=== PATIENT | male | born 1960 | race American Indian/Alaskan Native ===

== ENCOUNTER 2016-06-04 08:01 | Day surgery (SDC) | payer BC, OTHER ==
[2016-06-04] MEDS ORDERED: Sodium Chloride 0.9% 1,000 ML IV SCH (08:30)
[2016-06-04] MEDS ORDERED: Propofol 200 MG/20 ML SDV ONE ×2 (08:48→09:43)
[2016-06-04] MEDS ORDERED: fentaNYL 100 MCG/2 ML SDV ONE (08:48)
[2016-06-04] MEDS ORDERED: Midazolam 1 MG/ML 2 ML SDV ONE (08:48)
[2016-06-04 10:47] VITALS: BP 134/107
--- NOTE | 2016-06-04 12:22 | OR ---
DATE OF PROCEDURE: 06/04/2016 PROCEDURE: Colonoscopy. FINDINGS: 1. Descending colon polyp #1, 5 mm, completely removed using cold biopsy forceps. 2. Descending colon polyp #2, 5 mm, completely removed using cold biopsy forceps. 3. Sigmoid colon polyp, 5 mm, completely removed using cold biopsy forceps. 4. Rectal polyp, 5 mm, completely removed using cold biopsy forceps. 5. No old or new blood. 6. Diverticulosis, mild (potential etiology of GI bleeding). COMPLICATIONS: None. 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 ANESTHESIA: MAC. PREOPERATIVE DIAGNOSIS: Rectal bleeding. POSTOPERATIVE DIAGNOSIS: Rectal bleeding. RISKS: Risks, benefits, alternatives, and limitations, including, but not limited to infection, bleeding, and perforation were explained to the patient and he wished to proceed. PROCEDURE IN DETAIL: The patient was placed in left lateral decubitus position. Digital rectal exam was performed without abnormality. The scope was introduced and advanced atraumatically to the ileocecal valve. The scope was brought back to the ascending, transverse, descending colon, and retroflexed. The aforementioned polyps were identified and completely removed. There was no evidence of old or new blood. The patient had diverticulosis, which would be described as mild to moderate, but could definitely be the etiology of GI bleeding. No abnormalities on retroflexion. The patient tolerated the procedure well. Jagdish Rueda MD /[id number]
== END 2016-06-04 10:55 | disposition home or self-care (01) ==
LOC: JP.SDS 08:01
PROVIDERS: ATTEND Surgery
DX: Z12.11 Encounter for screening for malignant neoplasm of colon (principal); D12.4 Benign neoplasm of descending colon; K63.5 Polyp of colon; K62.1 Rectal polyp; J30.81 Allergic rhinitis due to animal (cat) (dog) hair and dander; K57.30 Diverticulosis of large intestine without perforation or abscess without bleeding; Z88.8 Allergy status to other drugs, medicaments and biological substances
CPT/HCPCS: 45380; 88305; J2250; J2704; J3010; J7040

== ENCOUNTER 2019-02-07 21:29 | Emergency (ER) | payer MEDICAID ==
[2019-02-07] MEDS ORDERED: Metoprolol Succinate 50 MG Tab.ER PO ONE (22:01)
--- NOTE | 2019-02-07 22:07 | EDM.PDOC ---
ED HPI GENERAL MEDICAL PROBLEM - General Chief Complaint: Cardiovascular Problem Stated Complaint: HIGH BLOOD PRESSURE Time Seen by Provider: 02/07/19 21:50 Source of Information: Reports: Patient, Old Records History Limitations: Reports: No Limitations - History of Present Illness INITIAL COMMENTS - FREE TEXT/NARRATIVE: 58 yo male with a pHx of both HTN and anxiety presents with elevated BP tonight that caused his anxiety to spike. Has not taken his BP for quite some time. Was on a few different meds for BP in the past, but is off all of them due to not having a doctor currently. Has been on lisinopril, metoprolol and most recently clonidine. 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 Cardiovascular History: Reports: High Cholesterol, Hypertension, [place] Other Cardiovascular History: ischemic stroke Respiratory History: Reports: COPD Other Respiratory History: snores- ? sleep apnea Gastrointestinal History: Reports: GERD, PUD Other Genitourinary History: FREQUENT URINATION AT NIGHT Musculoskeletal History: Reports: Arthritis, Gout, Other (See Below) Other Musculoskeletal History: chronic knee pain- difficulty to standing Neurological History: Reports: Concussion, CVA, Speech Problems Psychiatric History: Reports: Anxiety, Panic Attack Endocrine/Metabolic History: Reports: None, Obesity/BMI 30+ Hematologic History: Reports: None Immunologic History: Reports: None Oncologic (Cancer) History: Reports: None Dermatologic History: Reports: Urticaria - Infectious Disease History Infectious Disease History: Reports: None - Past Surgical History HEENT Surgical History: Reports: Other (See Below) GI Surgical History: Reports: None Male Surgical History: Reports: Circumcision Dermatological Surgical History: Reports: None Social & Family History - Family History Family Medical History: Noncontributory Cardiac: Reports: Blood Clots/VTE/DVT, CAD, Other (See Below) Other Cardiac Family History: carotid blockage Musculoskeletal: Reports: Osteoporosis Endocrine/Metabolic: Reports: Diabetes, type II - Caffeine Use Caffeine Use: Reports: Coffee ED ROS GENERAL - Review of Systems Review Of Systems: Comprehensive ROS is negative, except as noted in HPI. Constitutional: Reports: No Symptoms HEENT: Reports: No Symptoms Respiratory: Reports: No Symptoms Cardiovascular: Reports: Blood Pressure Problem Endocrine: Reports: No Symptoms GI/Abdominal: Reports: No Symptoms ED EXAM, GENERAL - Physical Exam Exam: See Below Exam Limited By: No Limitations General Appearance: Alert, WD/WN, No Apparent Distress, Anxious Eye Exam: Bilateral Eye: Normal Inspection Ears: Normal External Exam, Normal Canal, Hearing Grossly Normal, Normal TMs Ear Exam: Right Ear: TM Perforation, Bilateral Ear: Auricle Normal, Canal Normal , TM normal Nose: Normal Inspection, No Blood Throat/Mouth: Normal Inspection, Normal Lips, Normal Oropharynx, Normal Voice, No Airway Compromise Head: Atraumatic, Normocephalic Neck: Normal Inspection Respiratory/Chest: No Respiratory Distress, Lungs Clear, Normal Breath Sounds, No Accessory Muscle Use Cardiovascular: Regular Rate, Rhythm, No Edema Back Exam: Normal Inspection Extremities: Normal Inspection, Normal Range of Motion, Non-Tender, No Pedal Edema Neurological: Alert, Oriented, CN II-XII Intact, Normal Cognition, No Motor/ Sensory Deficits Psychiatric: Normal Affect, Normal Mood Skin Exam: Warm, Dry, Intact, Normal Color, No Rash Course - Vital Signs Last Recorded V/S: Last Vital Signs Temp 37.1 C 02/07/19 21:46 Pulse 107 H 02/07/19 21:46 Resp 16 02/07/19 21:46 BP 177/99 H 02/07/19 21:46 Pulse Ox 95 02/07/19 21:46 - Orders/Labs/Meds Orders: Active Orders 24 hr Category Date Time Status Metoprolol Succinate [Toprol XL] Med 02/07/19 22:01 Once 50 mg PO ONETIME ONE Departure - Departure Time of Disposition: 22:15 Disposition: Home, Self-Care 01 Condition: Fair Clinical Impression: Anxiety, Tobacco use HTN (hypertension) Qualifiers: Hypertension type: essential hypertension Qualified Code(s): I10 - Essential ( primary) hypertension Instructions: Managing Your Hypertension Referrals: PCP,Ben [Primary Care Provider] - Additional Instructions: Take metoprolol succinate 50 mg every evening until you can get into the clinic to be seen. Avoid salt, or nicotine. - My Orders Last 24 Hours: My Active Orders 02/07/19 22:01 Metoprolol Succinate [Toprol XL] 50 mg PO ONETIME ONE - Assessment/Plan Last 24 Hours: My Active Orders 02/07/19 22:01 Metoprolol Succinate [Toprol XL] 50 mg PO ONETIME ONE
[2019-02-07 22:28] VITALS: BP 143/88; PULSE 97
== END 2019-02-07 22:35 | disposition home or self-care (01) ==
LOC: JP.ED 21:29
DX: F41.9 Anxiety disorder, unspecified (principal); I10 Essential (primary) hypertension; Z91.09 Other allergy status, other than to drugs and biological substances; I25.2 Old myocardial infarction; E78.00 Pure hypercholesterolemia, unspecified; J44.9 Chronic obstructive pulmonary disease, unspecified; Z86.73 Personal history of transient ischemic attack (TIA), and cerebral infarction without residual deficits; E66.9 Obesity, unspecified; Z68.35 Body mass index [BMI] 35.0-35.9, adult; F17.200 Nicotine dependence, unspecified, uncomplicated; Z88.5 Allergy status to narcotic agent; Z79.82 Long term (current) use of aspirin; Z79.899 Other long term (current) drug therapy
CPT/HCPCS: 99283; A9270

== ENCOUNTER 2019-02-24 16:23 | Emergency (ER) | payer MEDICAID ==
[2019-02-24] MEDS ORDERED: LORazepam 2 MG/ML SDV IM ONE (16:58)
--- NOTE | 2019-02-24 17:05 | EDM.PDOC ---
ED HPI GENERAL MEDICAL PROBLEM - General Chief Complaint: General Stated Complaint: RICKEY WEAK SOB Time Seen by Provider: 02/24/19 16:45 Source of Information: Reports: Patient History Limitations: Reports: No Limitations - History of Present Illness INITIAL COMMENTS - FREE TEXT/NARRATIVE: 58-year-old male with a long history of hypertension, anxiety, has had 3 emergency room visits in the last month for anxiety exacerbations and hypertension. He did see Francisco Bridget and started primary care just over a week ago, started 12.5 mg of metoprolol XL and 50 mg of sertraline. Today he was reading a book and then started feeling his heart race, felt some pressure and shortness of breath and became shaky. He became worried he was "reacting to his medication" so came in. He arrived moderately hyperventilating and anxious , he said his hands were numb. This is a very similar presentation to when I saw him a month ago. Onset: Sudden Duration: Hour(s): (Within the last 1 to 2 hours) Associated Symptoms: Reports: Malaise, Shortness of Breath, Other (Paresthesias of the hands, tremor) Generalized Pain Score (Numeric/FACES): 2 - Related Data Allergies Allergy/AdvReac Type Severity Reaction Status Date / Time cat dander Allergy Hives Verified 02/07/19 22:19 epinephrine Allergy Cannot Verified 02/07/19 22:19 Remember unknow environmental Allergy Hives Uncoded 02/07/19 22:19 Home Meds: Home Meds Aspirin [Ecotrin EC] 325 mg PO DAILY 01/27/16 [History] atorvaSTATin [Lipitor] 20 mg PO BEDTIME 06/02/16 [History] Albuterol Sulfate [Albuterol Sulfate Hfa] 1 - 2 puff IH ASDIRECTED PRN 02/24/19 [History] Budesonide/Formoterol [Symbicort 80-4.5 MCG] 2 puff INH BID 02/24/19 [History] Lisinopril [Zestril] 20 mg PO DAILY 02/24/19 [History] Metoprolol Succinate 12.5 mg PO DAILY 02/24/19 [History] Sertraline [Zoloft] 50 mg PO DAILY 02/24/19 [History] hydrOXYzine HCL [Atarax] 25 - 50 mg PO ASDIRECTED PRN 02/24/19 [History] Past Medical History HEENT History: Reports: Impaired Vision, Other (See Below) Other HEENT History: Seasonal allergies. Cardiovascular History: Reports: High Cholesterol, Hypertension, [place] Other Cardiovascular History: ischemic stroke Respiratory History: Reports: COPD Other Respiratory History: snores- ? sleep apnea Gastrointestinal History: Reports: GERD, PUD Genitourinary History: Reports: Other (See Below) Other Genitourinary History: FREQUENT URINATION AT NIGHT Musculoskeletal History: Reports: Arthritis, Gout, Other (See Below) Other Musculoskeletal History: chronic knee pain- difficulty to standing Neurological History: Reports: Concussion, CVA, Speech Problems Psychiatric History: Reports: Anxiety, Panic Attack Endocrine/Metabolic History: Reports: Obesity/BMI 30+ Hematologic History: Reports: None Immunologic History: Reports: None Oncologic (Cancer) History: Reports: None Dermatologic History: Reports: Urticaria - Infectious Disease History Infectious Disease History: Reports: C-Difficile - Past Surgical History HEENT Surgical History: Reports: Other (See Below) GI Surgical History: Reports: None Male Surgical History: Reports: Circumcision Dermatological Surgical History: Reports: None Social & Family History - Family History Family Medical History: Noncontributory Cardiac: Reports: Blood Clots/VTE/DVT, CAD, Other (See Below) Other Cardiac Family History: carotid blockage Musculoskeletal: Reports: Osteoporosis Endocrine/Metabolic: Reports: Diabetes, type II - Tobacco Use Smoking Status *Q: Current Every Day Smoker Years of Tobacco use: 40 Packs/Tins Daily: 1.5 - Caffeine Use Caffeine Use: Reports: Coffee - Recreational Drug Use Recreational Drug Use: No ED ROS GENERAL - Review of Systems Review Of Systems: See Below Constitutional: Reports: Malaise HEENT: Reports: No Symptoms Respiratory: Reports: Shortness of Breath Cardiovascular: Reports: Chest Pain (Slight pressure in his chest, denies pain) , Palpitations GI/Abdominal: Denies: Abdominal Pain : Reports: No Symptoms Skin: Denies: Pallor, Diaphoresis Psychiatric: Reports: Anxiety ED EXAM, GENERAL - Physical Exam Exam: See Below Exam Limited By: No Limitations General Appearance: Alert, Anxious Eye Exam: Bilateral Eye: Normal Inspection Head: Atraumatic Respiratory/Chest: No Respiratory Distress, Lungs Clear Cardiovascular: Regular Rate, Rhythm, Tachycardia (Mild tachycardia, occasional PVCs or extra beats), Systolic Murmur (Very faint systolic murmur is present) GI/Abdominal: Soft, Non-Tender Extremities: Normal Inspection. No: Pedal Edema Neurological: Alert, Oriented Psychiatric: Anxious (Patient is extremely anxious) Skin Exam: Warm, Dry Course - Vital Signs Last Recorded V/S: Last Vital Signs Temp 97.2 F 02/24/19 16:40 Pulse 86 02/24/19 17:30 Resp 10 L 02/24/19 17:30 BP 145/90 H 02/24/19 17:30 Pulse Ox 95 02/24/19 17:30 - Orders/Labs/Meds Labs: Laboratory Tests 02/24/19 02/24/19 Range/Units 17:15 17:15 WBC 10.6 (4.5-11.0) K/uL RBC 5.50 (4.30-5.90) M/uL Hgb 16.5 H (12.0-15.0) g/dL Hct 49.8 (40.0-54.0) % MCV 91 (80-98) fL MCH 30 (27-31) pg MCHC 33 (32-36) % Plt Count 333 (150-400) K/uL Neut % (Auto) 64 (36-66) % Lymph % (Auto) 27 (24-44) % Wake % (Auto) 9 H (2-6) % Eos % (Auto) 1 L (2-4) % Baso % (Auto) 0 (0-1) % Sodium 139 L (140-148) mmol/L Potassium 3.6 (3.6-5.2) mmol/L Chloride 104 (100-108) mmol/L Carbon Dioxide 21 (21-32) mmol/L Anion Gap 17.6 H (5.0-14.0) mmol/L BUN 8 (7-18) mg/dL Creatinine 0.9 (0.8-1.3) mg/dL Est Cr Clr Drug Dosing 90.91 mL/min Estimated GFR (MDRD) > 60 (>60) Glucose 129 H (74-106) mg/dL Calcium 8.8 (8.5-10.1) mg/dL Troponin I < 0.017 (0.000-0.056) ng/mL Meds: Medications Discontinued Medications Generic Name Dose Route Start Last Admin Trade Name Freq PRN Reason Stop Dose Admin Lorazepam 2 mg 02/24/19 16:58 12/20/19 17:02 Ativan IM 02/24/19 16:59 2 mg ONETIME ONE Administration - Re-Assessments/Exams Free Text/Narrative Re-Assessment/Exam: 02/24/19 17:05 CBC BMP and troponin were obtained and he was given 2 mg of IM Ativan. 02/24/19 17:49 30 minutes after the Ativan the patient was resting quietly and vitals were normal. Labs returned reassuring, troponin was 0, electrolytes are normal. I asked the patient to increase his metoprolol to 25 mg daily, and try to continue the sertraline as prescribed. Departure - Departure Time of Disposition: 17:58 Disposition: Home, Self-Care 01 Clinical Impression: Palpitations, Anxiety - Discharge Information Instructions: Living With Anxiety Referrals: Francisco Gill NP [Primary Care Provider] - Forms: ED Department Discharge Care Plan Goals: Increase metoprolol to 25 mg daily, he will continue with your other medications. Recheck if not improving satisfactorily next week. Sepsis Event Note - Evaluation Sepsis Screening Result: No Definite Risk - Focused Exam Date Exam was Performed: 02/27/19 Time Exam was Performed: 10:45
[2019-02-24 17:47] VITALS: BP 145/90; PULSE 86
== END 2019-02-24 17:59 | disposition home or self-care (01) ==
LOC: JP.ED 16:23
DX: F41.9 Anxiety disorder, unspecified (principal); I10 Essential (primary) hypertension; E78.00 Pure hypercholesterolemia, unspecified; I25.2 Old myocardial infarction; J44.9 Chronic obstructive pulmonary disease, unspecified; M10.9 Gout, unspecified; Z86.73 Personal history of transient ischemic attack (TIA), and cerebral infarction without residual deficits; F41.0 Panic disorder [episodic paroxysmal anxiety]; E66.9 Obesity, unspecified; Z68.34 Body mass index [BMI] 34.0-34.9, adult; F17.210 Nicotine dependence, cigarettes, uncomplicated; Z88.8 Allergy status to other drugs, medicaments and biological substances; Z91.048 Other nonmedicinal substance allergy status; Z79.82 Long term (current) use of aspirin; Z79.899 Other long term (current) drug therapy
CPT/HCPCS: 36415; 80048; 84484; 85025; 96372; 99285-25; J2060

== ENCOUNTER 2019-05-15 07:43 | Day surgery (SDC) | payer MEDICAID ==
--- OUTSIDE RECORDS SUMMARY | 2019-04-27 08:31 | XMSREPORT | Referral Summary ---
:1960 Author Organization [facility] Address [address] [address] Care Team Providers Name Role Phone Francisco Gill APRN, CNP Primary Care Provider Reason for Referral Office Visit (Routine) Status Reason Specialty Diagnoses / Referred By Referred To Procedures Contact Contact Authorized Diagnoses Colon cancer screening Francisco Gill, [facility] [address] [phone] Phone: Reason for Visit Reason Comments Recheck Mood/ Medication questions. Encounter Details Date Type Department Care Team Description 04/25/2019 Office Visit [facility] Francisco Gill, Anxiety ( Primary Dx); [facility] SANTO Insomnia, unspecified type; [facility] [address] [facility] Colon cancer screening; [address] [place], [place] [id number] Allergies Active Allergy Reactions Severity Noted Date Comments Epinephrine Triggered a heart attack when given through an IV. documented as of this encounter (statuses as of 04/25/2019) Medications Medication Sig Dispensed Refills Start Date End Date Status aspirin EC 325 MG Take 1 Tab by 31 Tab 3 08/17/2012 Active tablet mouth one time a day. Do not split or crush. Blood Pressure 1 Dose by Does 1 Kit 0 07/08/2016 Active Monitoring (BLOOD not apply PRESSURE KIT) Kit route as needed (as needed). atorvaSTATin Take 1 Tab by 90 Tab 3 02/14/2019 Active (LIPITOR) 20 MG mouth at tablet bedtime. metoprolol Take 1 Tab by 90 Tab 1 03/20/2019 Active succinate mouth one time (Toprol-XL) 50 MG a day. Do not 24 hour crush or chew. extended-release tablet hydrOXYzine Take 1-2 Caps 40 Cap 1 03/20/2019 Active pamoate by mouth three (Vistaril) 25 MG times a day as capsule needed for Anxiety. sertraline Take 1 Tab by 90 Tab 1 03/20/2019 Active (Zoloft) 100 MG mouth one time tablet a day. albuterol HFA Inhale 1-2 3 Inhaler 6 04/25/2019 Active (Proair HFA, Puffs into the Ventolin HFA) 108 lungs every (90 Base) MCG/ACT four hours as inhalation needed for aerosol Shortness of Breath. Shake before using. budesonide-formot Inhale 2 Puffs 3 Inhaler 6 04/25/2019 Active iron (Symbicort) into the lungs 80-4.5 MCG/ACT two times a aerosol inhaler day. albuterol HFA Inhale 1-2 3 Inhaler 1 02/14/2019 Discontinued (PROAIR HFA, Puffs into the 0 (Reorder) VENTOLIN HFA) 108 lungs every (90 Base) MCG/ACT four hours as inhalation needed for aerosol Shortness of Breath. Shake before using. budesonide-formot Inhale 2 Puffs 3 Inhaler 1 02/14/2019 Discontinued iron (SYMBICORT) into the lungs 0 (Reorder) 80-4.5 MCG/ACT two times a aerosol inhaler day. traZODone Take 1-2 Tabs 60 Tab 3 03/20/2019 Discontinued (Desyrel) 50 MG by mouth at 0 (Side effects) tablet bedtime. documented as of this encounter (statuses as of 04/25/2019) Active Problems Problem Noted Date Chronic obstructive pulmonary disease, unspecified COPD type 03/20/2019 Prediabetes 10/13/2012 Dysarthria 08/24/2012 CAD (coronary artery disease) 08/24/2012 MO, old 08/24/2012 ED (erectile dysfunction) 08/24/2012 HTN (hypertension) 08/24/2012 Hypercholesterolemia 08/24/2012 Acute ischemic stroke, left cerebral 08/15/2012 documented as of this encounter (statuses as of 04/25/2019) Resolved Problems Problem Noted Date Resolved Date Left hemiparesis 08/24/2012 02/14/2019 Smoking 08/15/2012 08/24/2012 documented as of this encounter (statuses as of 04/25/2019) Immunizations Name Administration Dates Next Due Influenza Quad Preservative Free 04/15/2015 Influenza Unspecified Formulation 03/20/2013 Pneumovax 23 04/15/2015, 03/20/2013, 03/04/2010 TD >7yrs With Preservative 07/19/2002 Tdap >7 years 06/15/2017 documented as of this encounter Social History Tobacco Use Types Packs/Day Years Used Date Current Every Day Smoker Cigarettes 0.5 30 Smokeless Tobacco: Never Used Tobacco Cessation: Ready to Quit: No; Counseling Given: Yes Comments: 15 cigs a day/ E-cigarettes, uses patch on and off Alcohol Use Drinks/Week oz/Week Comments Yes 12 Cans of beer 10.0 12/week Sex Assigned at Date Recorded Not on file Job Start Date Occupation Industry Not on file Not on file Not on file Travel History Travel Start Travel End No recent travel history available. documented as of this encounter Last Filed Vital Signs Vital Sign Reading Time Taken Comments Blood Pressure 130/80 04/25/2019 10:30 AM BIT SHARPENER OPERATOR Pulse 84 04/25/2019 10:30 AM BIT SHARPENER OPERATOR Temperature 36.6 C (97.9 F) 04/25/2019 10:30 AM BIT SHARPENER OPERATOR Respiratory Rate 18 04/25/2019 10:30 AM BIT SHARPENER OPERATOR Oxygen Saturation 97% 04/25/2019 10:30 AM BIT SHARPENER OPERATOR Inhaled Oxygen Concentration - - Weight 107.1 kg (236 lb 1.8 oz) 04/25/2019 10:30 AM BIT SHARPENER OPERATOR Height - - Body Mass Index 35.64 02/14/2019 2:19 PM BIT SHARPENER OPERATOR documented in this encounter Progress Notes Francisco Gill, BEADER TENDER, LOTTERY MANAGER - 04/25/2019 10:20 AM CST Chief Complaint Patient presents with Recheck Mood/ Medication questions. History of Present Illness: Yobany Salvador is a 58 year old male presenting for recheck on his sleep and anxiety. The patient has a history of anxiety and difficulty with insomnia. When I initially met him I started him on sertraline 50 mg daily and continued with some hydroxyzine on an as-needed basis for management of the anxiety. Upon recheck he was still noting some anxiety symptoms and I increase the sertraline to 100 mg/day. Reports that the anxiety has been improved with that. Still has some anxiety symptoms but notnearly as severe as before. He does note he has had longstanding history of difficulty falling asleep noting racing thoughts and difficulty finding a sleep. I had him try trazodone when I saw him last month. He reports that the medication really did not help a whole lot and recently has been feeling some undue side effects. He noticed some heart palpitations and difficulty breathing after he tookthe trazodone. He stopped taking that totally on his own a few days ago and has not had any of the aforementioned symptoms. He does continue to struggle with sleep which is bothersome for him. He did have a colonoscopy about 3 years ago which did show several polyps one being a tubular adenoma. Repeat in 3 years was recommended. The patient denies any difficulties with abdominal pain, dark or bloody stool , change in the bowel habits, weight loss or night sweats. Review of Systems Constitutional: Negative for chills, fever and malaise/fatigue. Respiratory: Negative for cough, sputum production, shortness of breath and wheezing. Cardiovascular: Negative for chest pain, palpitations and claudication. Gastrointestinal: Negative for abdominal pain, blood in stool, constipation, diarrhea, melena, nausea and vomiting. Skin: Negative for itching and rash. Neurological: Negative for dizziness, tingling and headaches. Psychiatric/Behavioral: The patient has insomnia. The patient is not nervous/ anxious. Past Medical History: Diagnosis Date Carpal tunnel syndrome Chronic obstructive pulmonary disease, unspecified COPD type (HCC) 03/20/2019 Glucose intolerance (pre-diabetes) 10/13/2012 HTN (hypertension) 08/24/2012 Hyperlipemia Left hemiparesis (HCC) 08/24/2012 Unspecified cerebral artery occlusion with cerebral infarction Past Surgical History: Procedure Laterality Date COLONOSCOPY,BIOPSY 06/04/2016 next colon due in [address] Rueda LIPOMA RESECTION Current Outpatient Medications Medication Sig albuterol HFA (Proair HFA, Ventolin HFA) 108 (90 Base) MCG/ACT inhalation aerosol Inhale 1-2 Puffs into the lungs every four hours as needed for Shortness of Breath. Shake before using. budesonide-formoterol (Symbicort) 80-4.5 MCG/ACT aerosol inhaler Inhale 2 Puffs into the lungs two times a day. metoprolol succinate (Toprol-XL) 50 MG 24 hour extended-release tablet Take 1 Tab by mouth one time a day. Do not crush or chew. hydrOXYzine pamoate (Vistaril) 25 MG capsule Take 1-2 Caps by mouth three times a day as needed for Anxiety. sertraline (Zoloft) 100 MG tablet Take 1 Tab by mouth one time a day. atorvaSTATin (LIPITOR) 20 MG tablet Take 1 Tab by mouth at bedtime. Blood Pressure Monitoring (BLOOD PRESSURE KIT) Kit 1 Dose by Does not apply route as needed (as needed). aspirin EC 325 MG tablet Take 1 Tab by mouth one time a day. Do not split or crush. No current facility-administered medications for this visit. Allergies Allergen Reactions Epinephrine Triggered a heart attack when given through an IV. Social History Tobacco Use Smoking status: Current Every Day Smoker Packs/day: 0.50 Years: 30.00 Pack years: 15.00 Types: Cigarettes Smokeless tobacco: Never Used Tobacco comment: 15 cigs a day/ E-cigarettes, uses patch on and off Substance Use Topics Alcohol use: Yes Alcohol/week: 10.0 standard drinks Types: 12 Cans of beer per week Comment: 12/week Family History Problem Relation Age of Onset Cardiovascular Disease Father Hypertension Father Diabetes Father Myocardial Infarction Father Blood pressure 130/80, pulse 84, temperature 36.6 C (97.9 F), resp. rate 18 , weight 236 lb 1.8 oz (107.1 kg), SpO2 97 %. Physical Exam Constitutional: He is oriented to person, place, and time and well-developed, well-nourished, and inno distress. HENT: Head: Normocephalic and atraumatic. Cardiovascular: Normal rate, regular rhythm and normal heart sounds. Pulmonary/Chest: Effort normal and breath sounds normal. No respiratory distress. He has no wheezes.He has no rales. Musculoskeletal: Normal range of motion. General: No tenderness or edema. Neurological: He is alert and oriented to person, place, and time. Gait normal. Skin: Skin is warm and dry. No rash noted. No erythema. Psychiatric: Mood, affect and judgment normal. ASSESSMENT/PLAN: 1. Anxiety: Definitely seeing some improvement, continue with the sertraline 100 mg daily and as needed hydroxyzine. 2. Insomnia: Definitely stop the trazodone and do not take that anymore given the side effects. Wewill have him try melatonin 6 mg at bedtime. 3. Colon cancer screening: We will send orders for repeat colonoscopy. - Follow up: In about 3 months for routine physical, sooner if needed. Francisco Gill APRN, LOTTERY MANAGER [address] [phone] documented in this encounter Plan of Treatment Date Type Specialty Care Team Description 07/24/2019 Appointment Laboratory Lab, [facility], [address] [place] [id number] 07/24/2019 Appointment Internal Medicine Francisco Gill, HANSA, LOTTERY MANAGER [address] [place] [phone] Name Type Priority Associated Diagnoses Order Schedule SCHEDULE ENDOSCOPY REFERRAL Routine Colon cancer screening Ordered: 2019 [facility] documented as of this encounter Visit Diagnoses Diagnosis Anxiety Anxiety state, unspecified Insomnia, unspecified type Colon cancer screening Special screening for malignant neoplasms, colon Tobacco use disorder documented in this encounter documented as of this encounter Advance Directives For more information, please contact: [phone] Code Status Date Activated Date Inactivated Comments Full Code 08/15/2012 12:09 PM 08/17/2012 6:04 PM
[2019-05-15] MEDS ORDERED: Sodium Chloride 0.9% 1,000 ML IV SCH (08:45)
[2019-05-15] MEDS ORDERED: fentaNYL 100 MCG/2 ML SDV ONE (08:51)
[2019-05-15] MEDS ORDERED: Propofol 200 MG/20 ML SDV ONE (08:51)
[2019-05-15] MEDS ORDERED: Midazolam 1 MG/ML 2 ML SDV ONE (08:51)
[2019-05-15 10:25] VITALS: BP 121/74; PULSE 64
--- NOTE | 2019-05-16 08:45 | OR ---
DATE OF PROCEDURE: 05/15/2019 SURGEON: Jagdish Rueda MD PROCEDURE: Colonoscopy. FINDINGS: Descending colon, polyp of approximately 5 mm, completely removed using cold biopsy forceps. COMPLICATIONS: None. TECHNICAL TRAINER: None. ANESTHESIA: MAC. PREOPERATIVE DIAGNOSIS: Screening colonoscopy. POSTOPERATIVE DIAGNOSIS: Screening colonoscopy. RISKS: Risks, benefits, alternatives, and limitations including, but not limited to, infection, bleeding, and perforation were explained to the patient, who wished to proceed. PROCEDURE IN DETAIL: The patient was placed in left lateral decubitus position. Digital rectal exam was performed without abnormality. The scope was introduced and advanced atraumatically to the level of ileocecal valve. A photo was taken. The scope was brought back through the colon. In the descending colon, the aforementioned polyp was completely removed using hot snare wire device. No abnormalities on retroflexion. The patient tolerated the procedure well. Jagdish Rueda MD /[id number]
== END 2019-05-15 10:27 | disposition home or self-care (01) ==
LOC: JP.SDS 07:43
PROVIDERS: ATTEND Surgery
DX: Z12.11 Encounter for screening for malignant neoplasm of colon (principal); K63.5 Polyp of colon; I10 Essential (primary) hypertension; I25.10 Atherosclerotic heart disease of native coronary artery without angina pectoris
CPT/HCPCS: 45385; J2250; J2704; J3010; J7030

== ENCOUNTER 2019-07-28 21:11 | Emergency (ER) | payer MEDICAID ==
[2019-07-28 21:27] VITALS: BP 144/90; PULSE 99
[2019-07-28] MEDS ORDERED: Cetirizine 10 MG Tab PO ONE (22:02)
[2019-07-28] MEDS ORDERED: Famotidine 20 MG Tab PO ONE (22:02)
[2019-07-28] MEDS ORDERED: predniSONE 20 MG Tab PO ONE (22:02)
--- NOTE | 2019-07-28 22:07 | EDM.PDOC ---
ED HPI GENERAL MEDICAL PROBLEM - General Chief Complaint: Skin Complaint Stated Complaint: RASH ON FOREHEAD Time Seen by Provider: 07/28/19 21:50 Source of Information: Reports: Patient History Limitations: Reports: No Limitations - History of Present Illness INITIAL COMMENTS - FREE TEXT/NARRATIVE: Yobany reports itching rash to face and upper shoulders/back that started today. He denies insect bites, eating or drinking anything new, using any new topicals or other exposure. He does report that he has seasonal allergies. He denies fever, chills, nausea, vomiting or other concerns. Treatments FAMILY PHYSICIAN: Reports: Other Medication(s) Other Treatments FAMILY PHYSICIAN: benadryl - Related Data Allergies Allergy/AdvReac Type Severity Reaction Status Date / Time cat dander Allergy Hives Verified 07/28/19 21:35 epinephrine Allergy Cannot Verified 07/28/19 21:35 Remember unknow environmental Allergy Hives Uncoded 07/28/19 21:35 Home Meds: Home Meds Aspirin [Ecotrin EC] 325 mg PO DAILY 01/27/16 [History] atorvaSTATin [Lipitor] 20 mg PO BEDTIME 06/02/16 [History] Albuterol Sulfate [Albuterol Sulfate Hfa] 1 - 2 puff IH ASDIRECTED PRN 02/24/19 [History] Budesonide/Formoterol [Symbicort 80-4.5 MCG] 1 puff INH DAILY 02/24/19 [History] Metoprolol Succinate 50 mg PO DAILY 02/24/19 [History] Sertraline [Zoloft] 100 mg PO DAILY 02/24/19 [History] hydrOXYzine HCL [Atarax] 25 - 50 mg PO TID 02/24/19 [History] diphenhydrAMINE HCL [Benadryl] 25 mg PO 07/28/19 [History] diphenhydrAMINE [Benadryl] 25 - 75 mg PO Q4H PRN 07/28/19 [History] Past Medical History HEENT History: Reports: Allergic Rhinitis, Impaired Vision, Other (See Below) Other HEENT History: Seasonal allergies. Cardiovascular History: Reports: Heart Murmur, High Cholesterol, Hypertension, [place] Other Cardiovascular History: ischemic stroke Respiratory History: Reports: COPD Other Respiratory History: snores- ? sleep apnea Gastrointestinal History: Reports: Colon Polyp, GERD, PUD Genitourinary History: Reports: Other (See Below) Other Genitourinary History: FREQUENT URINATION AT NIGHT Musculoskeletal History: Reports: Arthritis, Gout, Other (See Below) Other Musculoskeletal History: chronic knee pain- difficulty to standing Neurological History: Reports: Concussion, CVA, Headaches, Chronic, Speech Problems Psychiatric History: Reports: Anxiety, Panic Attack Endocrine/Metabolic History: Reports: Obesity/BMI 30+ Hematologic History: Reports: None Immunologic History: Reports: None Oncologic (Cancer) History: Reports: None Dermatologic History: Reports: Urticaria - Infectious Disease History Infectious Disease History: Reports: Chicken Pox - Past Surgical History HEENT Surgical History: Reports: Other (See Below) Other HEENT Surgeries/Procedures: lipoma of cheek GI Surgical History: Reports: Colonoscopy Male Surgical History: Reports: Circumcision Endocrine Surgical History: Reports: None Social & Family History - Family History Family Medical History: Noncontributory Cardiac: Reports: Blood Clots/VTE/DVT, CAD, Other (See Below) Other Cardiac Family History: carotid blockage Musculoskeletal: Reports: Osteoporosis Endocrine/Metabolic: Reports: Diabetes, type II - Tobacco Use Smoking Status *Q: Current Every Day Smoker Years of Tobacco use: 40 Packs/Tins Daily: 1 Used Tobacco, but Quit: No Second Hand Smoke Exposure: No - Caffeine Use Caffeine Use: Reports: Coffee, Soda - Recreational Drug Use Recreational Drug Use: No Drug Use in Last 12 Months: No ED ROS GENERAL - Review of Systems Review Of Systems: See Below Constitutional: Reports: No Symptoms HEENT: Reports: Other (Rash with itching to face, shoulders and upper back. ) Respiratory: Reports: No Symptoms Cardiovascular: Reports: No Symptoms GI/Abdominal: Reports: No Symptoms Musculoskeletal: Reports: No Symptoms Skin: Reports: Rash Neurological: Reports: No Symptoms Psychiatric: Reports: No Symptoms Hematologic/Lymphatic: Reports: No Symptoms Immunologic: Reports: No Symptoms ED EXAM, SKIN/RASH Exam: See Below Exam Limited By: No Limitations General Appearance: Alert, WD/WN, No Apparent Distress Eye Exam: Bilateral Eye: Normal Inspection, PERRL Ears: Normal External Exam, Normal Canal, Hearing Grossly Normal, Normal TMs Nose: Normal Inspection, Normal Mucosa, No Blood Throat/Mouth: Normal Inspection, Normal Lips, Normal Teeth, Normal Gums, Normal Voice, No Airway Compromise Head: Atraumatic, Normocephalic, Other (macular/papular rash to forehead, cheeks ) Neck: Normal Inspection, Supple, Non-Tender, Full Range of Motion. No: Lymphadenopathy (R), Lymphadenopathy (L) Respiratory/Chest: No Respiratory Distress, Lungs Clear, Normal Breath Sounds, No Accessory Muscle Use, Chest Non-Tender Cardiovascular: Normal Peripheral Pulses, Regular Rate, Rhythm, No Edema, No Gallop, No Murmur, No Rub Peripheral Pulses: 2+: Radial (L), Radial (R) Back Exam: Normal Inspection, Full Range of Motion, Other (macular papular rash to upper back). No: CVA Tenderness (R), CVA Tenderness (L) Extremities: Normal Inspection, Normal Range of Motion, Non-Tender, No Pedal Edema, Normal Capillary Refill Neurological: Alert, Oriented, Normal Cognition, Normal Gait, Normal Reflexes, No Motor/Sensory Deficits Psychiatric: Normal Affect, Normal Mood Skin: Warm, Dry, Rash, Other (macular papular rash to forehead, cheeks, shoulders and upper back) Characteristics: Macular, Papular Lymphatic: No Adenopathy Course - Vital Signs Last Recorded V/S: Last Vital Signs Temp 36.6 C 07/28/19 21:54 Pulse 99 07/28/19 21:54 Resp 16 07/28/19 21:54 BP 144/90 H 07/28/19 21:54 Pulse Ox 94 L 07/28/19 21:54 - Orders/Labs/Meds Meds: Medications Discontinued Medications Generic Name Dose Route Start Last Admin Trade Name Freq PRN Reason Stop Dose Admin Cetirizine HCl 10 mg 07/28/19 22:02 07/28/19 22:18 Zyrtec PO 07/28/19 22:03 10 mg ONETIME ONE Administration Famotidine 20 mg 07/28/19 22:02 07/28/19 22:18 Pepcid PO 07/28/19 22:03 20 mg ONETIME ONE Administration Prednisone 40 mg 07/28/19 22:02 07/28/19 22:18 Prednisone PO 07/28/19 22:03 40 mg ONETIME ONE Administration Departure - Departure Time of Disposition: 22:21 Disposition: Home, Self-Care 01 Condition: Good Clinical Impression: Seasonal allergic rhinitis, Pruritic rash - Discharge Information *PRESCRIPTION DRUG MONITORING PROGRAM REVIEWED*: Not Applicable *COPY OF PRESCRIPTION DRUG MONITORING REPORT IN PATIENT MELODIE: Not Applicable Instructions: Allergic Rhinitis, Adult Referrals: Francisco Gill COLOR MAKER DYER [Primary Care Provider] - Forms: ED Department Discharge Additional Instructions: Push fluids to stay hydrated. Take prednisone 40mg PO daily for 5 days. Take cetirizine (zyrtec) 10mg by mouth daily for seasonal allergies. Take pepcid (famotidine) 20mg by mouth twice per day for 10 days. May take benadryl 50mg three times a day as needed for itching/rash. Return for any worsening, issues or concerns. Follow up with primary in 10 to 14 days or earlier as needed. Sepsis Event Note - Evaluation Sepsis Screening Result: No Definite Risk - Focused Exam Vital Signs: Vital Signs Temp Pulse Resp BP Pulse Ox 07/28/19 21:54 36.6 C 99 16 144/90 H 94 L 07/28/19 21:25 36.6 C 99 16 144/90 H 94 L Date Exam was Performed: 07/28/19 Time Exam was Performed: 23:32 - Assessment/Plan Assessment:: Allergic rhinitis pruritic rash Plan: Push fluids to stay hydrated. Take prednisone 40mg PO daily for 5 days. Take cetirizine (zyrtec) 10mg by mouth daily for seasonal allergies. Take pepcid (famotidine) 20mg by mouth twice per day for 10 days. May take benadryl 50mg three times a day as needed for itching/rash. Return for any worsening, issues or concerns. Follow up with primary in 10 to 14 days or earlier as needed.
== END 2019-07-28 22:22 | disposition home or self-care (01) ==
LOC: JP.ED 21:11
DX: R21 Rash and other nonspecific skin eruption (principal); J30.2 Other seasonal allergic rhinitis; E78.00 Pure hypercholesterolemia, unspecified; I10 Essential (primary) hypertension; I25.2 Old myocardial infarction; J44.9 Chronic obstructive pulmonary disease, unspecified; M10.9 Gout, unspecified; F41.9 Anxiety disorder, unspecified; F17.210 Nicotine dependence, cigarettes, uncomplicated; E66.9 Obesity, unspecified; Z68.20 Body mass index [BMI] 20.0-20.9, adult; Z91.09 Other allergy status, other than to drugs and biological substances; Z88.8 Allergy status to other drugs, medicaments and biological substances; Z79.82 Long term (current) use of aspirin; Z79.899 Other long term (current) drug therapy; Z86.73 Personal history of transient ischemic attack (TIA), and cerebral infarction without residual deficits
CPT/HCPCS: 99282; A9270; J7512

== ENCOUNTER 2019-10-17 16:50 | Emergency (ER) | payer MEDICAID ==
--- NOTE | 2019-10-17 17:40 | EDM.PDOC ---
<BenitoChemosandra Zamora - Last Filed: 10/17/19 18:29> ED HPI GENERAL MEDICAL PROBLEM - General Chief Complaint: General Stated Complaint: FELL,CUT HEAD Time Seen by Provider: 10/17/19 17:33 Source of Information: Reports: Patient, Family History Limitations: Reports: No Limitations - History of Present Illness Onset: Today Location: Reports: Head, Neck, Upper Extremity, Right, Lower Extremity, Right Quality: Reports: Ache Improves with: Reports: None Context: Reports: Trauma (Fell off bar stool after having coughing fit.) Associated Symptoms: Reports: Seizure (possible), Syncope Left Face/Facial Pain Score (Numeric/FACES): 8 - Related Data Allergies Allergy/AdvReac Type Severity Reaction Status Date / Time cat dander Allergy Hives Verified 07/28/19 21:35 epinephrine Allergy Cannot Verified 07/28/19 21:35 Remember unknow environmental Allergy Hives Uncoded 07/28/19 21:35 Home Meds: Home Meds Aspirin [Ecotrin EC] 325 mg PO DAILY 01/27/16 [History] atorvaSTATin [Lipitor] 20 mg PO BEDTIME 06/02/16 [History] Albuterol Sulfate [Albuterol Sulfate Hfa] 1 - 2 puff IH ASDIRECTED PRN 02/24/19 [History] Budesonide/Formoterol [Symbicort 80-4.5 MCG] 1 puff INH DAILY 02/24/19 [History] Metoprolol Succinate 50 mg PO DAILY 02/24/19 [History] Sertraline [Zoloft] 100 mg PO DAILY 02/24/19 [History] hydrOXYzine HCL [Atarax] 25 - 50 mg PO TID 02/24/19 [History] diphenhydrAMINE HCL [Benadryl] 25 mg PO 07/28/19 [History] diphenhydrAMINE [Benadryl] 25 - 75 mg PO Q4H PRN 07/28/19 [History] Past Medical History HEENT History: Reports: Allergic Rhinitis, Impaired Vision, Other (See Below) Other HEENT History: Seasonal allergies. Cardiovascular History: Reports: Heart Murmur, High Cholesterol, Hypertension, [place] Other Cardiovascular History: ischemic stroke Respiratory History: Reports: COPD Other Respiratory History: snores- ? sleep apnea Gastrointestinal History: Reports: Colon Polyp, GERD, PUD Genitourinary History: Reports: Other (See Below) Other Genitourinary History: FREQUENT URINATION AT NIGHT Musculoskeletal History: Reports: Arthritis, Gout, Other (See Below) Other Musculoskeletal History: chronic knee pain- difficulty to standing Neurological History: Reports: Concussion, CVA, Headaches, Chronic, Speech Problems Psychiatric History: Reports: Anxiety, Panic Attack Endocrine/Metabolic History: Reports: Obesity/BMI 30+ Hematologic History: Reports: None Immunologic History: Reports: None Oncologic (Cancer) History: Reports: None Dermatologic History: Reports: Urticaria - Infectious Disease History Infectious Disease History: Reports: Chicken Pox - Past Surgical History HEENT Surgical History: Reports: Other (See Below) Other HEENT Surgeries/Procedures: lipoma of cheek GI Surgical History: Reports: Colonoscopy Male Surgical History: Reports: Circumcision Endocrine Surgical History: Reports: None Social & Family History - Family History Family Medical History: Noncontributory Cardiac: Reports: Blood Clots/VTE/DVT, CAD, Other (See Below) Other Cardiac Family History: carotid blockage Musculoskeletal: Reports: Osteoporosis Endocrine/Metabolic: Reports: Diabetes, type II - Caffeine Use Caffeine Use: Reports: Coffee, Soda ED EXAM, GENERAL - Physical Exam Exam: See Below Exam Limited By: No Limitations General Appearance: Alert, Moderate Distress, Obese Ears: Normal External Exam, Normal Canal Nose: Normal Inspection, Normal Mucosa, No Blood Throat/Mouth: Normal Lips, Normal Voice, Other (teeth w/multiple caries) Head: Facial Swelling, Facial Tenderness, Other (extensive abrasions L foce, periorbital, forehead and L cheek) Neck: Limited Range of Motion, Tender Midline (C/Collar attempted to be placed. connaot fully fix collar because of thickness of neck.) Respiratory/Chest: No Respiratory Distress, Lungs Clear Cardiovascular: Normal Peripheral Pulses, Regular Rate, Rhythm, No Edema Extremities: Limited Range of Motion (abrasion R anterior knee w/ limited flexion.), Other (abrasion and tenderness dorsum R hand. tender 2nd and 3rd metacarpals on palpation) EKG INTERPRETATION EKG Date: 10/17/19 Time: 17:50 Rhythm: NSR Rate (Beats/Min): 72 [place]: Normal P-Wave: Present ST-T: Other ("minimal ST depression inferior leads") Course - Vital Signs Text/Narrative:: Initial differential diagnosis: Head trauma, skull fract, facial fracture, subdural hematoma, hand fracture,hand abrasion, knee fracture, knee abrasion, seizure, alcohol intoxication. I discussed patient with Dr. James who will follow up multiple CT scans and x-rays and make final disposition. Departure - Departure Disposition: Home, Self-Care 01 Clinical Impression: Head trauma Qualifiers: Encounter type: initial encounter Qualified Code(s): S09.90XA - Unspecified injury of head, initial encounter - Discharge Information Referrals: Francisco Gill [employer]CY[employer] F[employer]IC[employer] [Primary Care Provider] - Forms: ED Department Discharge Additional Instructions: Use ibuprofen for baseline pain control use hydrocodone for breakthrough pain, please followup with your primary care provider in 3-5 days if not better, please call return to the emergency department with worsening of symptoms. <MichaelrClifford - Last Filed: 10/17/19 21:05> ED ROS GENERAL - Review of Systems Review Of Systems: See Below Course - Vital Signs Last Recorded V/S: Last Vital Signs Temp 93.7 F L 10/17/19 17:50 Pulse 80 10/17/19 19:20 Resp 23 H 10/17/19 19:20 BP 129/83 10/17/19 19:20 Pulse Ox 94 L 10/17/19 19:20 - Orders/Labs/Meds Orders: Active Orders 24 hr Category Date Time Status EKG Documentation Completion [RC] ASDIRECTED Care 10/17/19 17:45 Active NPO [Nothing Per Oral Diet] [DIET] Diet 10/18/19 Breakfast Active Chest 2V [CR] Stat Exams 10/17/19 18:04 Taken Hand 2V Rt [CR] Stat Exams 10/17/19 17:48 Taken Knee 3V Rt [CR] Stat Exams 10/17/19 17:48 Taken DRUG SCREEN, URINE [URCHEM] Urgent Lab 10/17/19 17:44 Ordered UA W/MICROSCOPIC [URIN] Urgent Lab 10/17/19 17:44 Ordered EKG 12 Lead [EK] Urgent Ther 10/17/19 17:44 Ordered Labs: Laboratory Tests 10/17/19 10/17/19 10/17/19 Range/Units 17:50 17:50 17:50 WBC 11.1 H (4.5-11.0) K/uL RBC 5.46 (4.30-5.90) M/uL Hgb 16.6 H (12.0-15.0) g/dL Hct 50.5 (40.0-54.0) % MCV 93 (80-98) fL MCH 30 (27-31) pg MCHC 33 (32-36) % Plt Count 318 (150-400) K/uL PT 10.7 (9.5-12.0) sec INR 0.98 (0.80-1.20) Sodium (140-148) mmol/L Potassium (3.6-5.2) mmol/L Chloride (100-108) mmol/L Carbon Dioxide (21-32) mmol/L Anion Gap (5.0-14.0) mmol/L BUN (7-18) mg/dL Creatinine (0.8-1.3) mg/dL Est Cr Clr Drug Dosing mL/min Estimated GFR (MDRD) (>60) Glucose (74-106) mg/dL Calcium (8.5-10.1) mg/dL Magnesium (1.8-2.4) mg/dL Total Bilirubin (0.2-1.0) mg/dL AST (15-37) U/L ALT (12-78) U/L Alkaline Phosphatase (46-116) U/L Troponin I < 0.017 (0.000-0.056) ng/mL Total Protein (6.4-8.2) g/dL Albumin (3.4-5.0) g/dL Globulin (2.3-3.5) g/dL Albumin/Globulin Ratio (1.2-2.2) Ethyl Alcohol mg/dL 10/17/19 10/17/19 10/17/19 Range/Units 17:50 17:50 17:55 WBC (4.5-11.0) K/uL RBC (4.30-5.90) M/uL Hgb (12.0-15.0) g/dL Hct (40.0-54.0) % MCV (80-98) fL MCH (27-31) pg MCHC (32-36) % Plt Count (150-400) K/uL PT (9.5-12.0) sec INR (0.80-1.20) Sodium 138 L (140-148) mmol/L Potassium 3.8 (3.6-5.2) mmol/L Chloride 103 (100-108) mmol/L Carbon Dioxide 19 L (21-32) mmol/L Anion Gap 19.8 H (5.0-14.0) mmol/L BUN 11 (7-18) mg/dL Creatinine 1.5 H D (0.8-1.3) mg/dL Est Cr Clr Drug Dosing 54.33 mL/min Estimated GFR (MDRD) 48 L (>60) Glucose 107 H (74-106) mg/dL Calcium 8.8 (8.5-10.1) mg/dL Magnesium 2.3 (1.8-2.4) mg/dL Total Bilirubin 0.6 D (0.2-1.0) mg/dL AST 59 H D (15-37) U/L ALT 124 H (12-78) U/L Alkaline Phosphatase 77 (46-116) U/L Troponin I (0.000-0.056) ng/mL Total Protein 7.8 (6.4-8.2) g/dL Albumin 3.9 (3.4-5.0) g/dL Globulin 3.9 H (2.3-3.5) g/dL Albumin/Globulin Ratio 1.0 L (1.2-2.2) Ethyl Alcohol 66 mg/dL Meds: Medications Discontinued Medications Generic Name Dose Route Start Last Admin Trade Name Donaldq PRN Reason Stop Dose Admin Bacitracin 3 dose 10/17/19 19:33 10/17/19 19:46 Bacitracin Oint 1 Gm TOP 10/17/19 19:34 3 dose ONETIME ONE Administration Hydromorphone HCl 0.5 mg 10/17/19 17:45 10/17/19 17:58 Dilaudid IVPUSH 10/17/19 17:46 0.5 mg ONETIME ONE Administration Sodium Chloride 1,000 mls @ 500 mls/hr 10/17/19 17:45 10/17/19 17:58 Normal Saline IV 10/17/19 19:44 500 mls/hr .BOLUS ONE Administration Ketorolac Tromethamine 30 mg 10/17/19 19:22 10/17/19 19:29 Toradol IVPUSH 10/17/19 19:23 30 mg ONETIME ONE Administration Ondansetron HCl 4 mg 10/17/19 17:45 10/17/19 17:58 Zofran IVPUSH 10/17/19 17:46 4 mg ONETIME ONE Administration - Re-Assessments/Exams Free Text/Narrative Re-Assessment/Exam: 10/17/19 21:05 Took over care from Dr. Oliver at shift change Departure - Departure Time of Disposition: 21:04 Condition: Fair Sepsis Event Note (ED) - Focused Exam Vital Signs: Vital Signs Temp Pulse Resp BP Pulse Ox 10/17/19 19:20 80 23 H 129/83 94 L 10/17/19 18:40 74 21 H 120/74 92 L 10/17/19 18:27 71 110/62 10/17/19 17:50 93.7 F L 65 11 L 85/50 L 93 L 10/17/19 17:36 93.7 F L 65 11 L 85/50 L 93 L - Assessment/Plan Plan: Assessment Acuity = acute Site and laterality = head injury Etiology = falling off a stool Manifestations = none Location of injury = Home Lab values = CBC unremarkable creatinine elevated 1.5 consistent chronic renal failure stage T3a AST elevated 59 ALT 124 consistent with elevated liver enzymes troponin was negative EtOH at [address] scans and x-rays I did not appreciate any acute fracture official read radiologist pending Plan Had good relief with the Toradol was able to ambulate around the emergency depar tment sent home with hydrocodone 5/325 1 tab p.o. 3 times daily PRN total #10 follow-up with primary care in 3 to 5 days if not better This note was dictated using [employer] voice recognition software please call with any questions on syntax or grammar.
[2019-10-17] MEDS ORDERED: Sodium Chloride 0.9% 1,000 ML IV ONE (17:45)
[2019-10-17] MEDS ORDERED: HYDROmorphone 0.5 MG/0.5 ML Syringe IVPUSH ONE (17:45)
[2019-10-17] MEDS ORDERED: Ondansetron 4 MG/2 ML SDV IVPUSH ONE (17:45)
--- NOTE | 2019-10-17 19:08 | CRLCT ---
INDICATION: Fall TECHNIQUE: CT cervical spine without contrast. COMPARISON: None FINDINGS: Vertebral alignment: Alignment is normal. Vertebrae: There are no fractures or suspicious bony lesions. Discs and facet joints: There are moderate multilevel degenerative disc and facet changes. Extraspinal findings: Paraspinous soft tissues are unremarkable. IMPRESSION: 1. No sign of acute injury. 2. Multilevel degenerative spondylosis. Please note that all CT scans at this facility use dose modulation, iterative reconstruction, and/or weight-based dosing when appropriate to reduce radiation dose to as low as reasonably achievable. Dictated by Karen Kim MD @ Oct 17 2019 7:04PM Signed by Dr. Karen Kim @ Oct 17 2019 7:07PM
--- NOTE | 2019-10-17 19:10 | CRLCT ---
INDICATION: Fall TECHNIQUE: Head CT without contrast. COMPARISON: None FINDINGS: CSF spaces: Within normal limits for age. Brain parenchyma: There are nonspecific low attenuation white matter changes consistent with chronic microvascular disease. No sign of mass, hemorrhage, or midline shift. Skull base and calvarium: The visualized paranasal sinuses and mastoid air cells demonstrate no acute or significant findings. The visualized orbits are grossly unremarkable. No skull fractures. There is intracranial atherosclerosis. Small left frontal scalp contusion. IMPRESSION: 1. No acute intracranial hemorrhage or skull fracture. Small left frontal scalp contusion. 2. Nonspecific white matter disease, typical of chronic microvascular disease. Please note that all CT scans at this facility use dose modulation, iterative reconstruction, and/or weight-based dosing when appropriate to reduce radiation dose to as low as reasonably achievable. Dictated by Karen Kim MD @ Oct 17 2019 7:07PM Signed by Dr. Karen Kim @ Oct 17 2019 7:09PM
--- NOTE | 2019-10-17 19:12 | CRLCT ---
INDICATION: Fall TECHNIQUE: CT maxillofacial without contrast. COMPARISON: None FINDINGS: Facial bones: No fractures or bone lesions. Specifically the nasal bones, temporomandibular joints, maxilla and mandible appear intact. Orbits and globes: Unremarkable. Sinuses: No acute or significant findings. Soft tissues: Small left frontal scalp contusion. IMPRESSION: No acute fracture or subluxation. Small left frontal scalp contusion. Please note that all CT scans at this facility use dose modulation, iterative reconstruction, and/or weight-based dosing when appropriate to reduce radiation dose to as low as reasonably achievable. Dictated by Karen Kim MD @ Oct 17 2019 7:09PM Signed by Dr. Karen Kim @ Oct 17 2019 7:11PM
[2019-10-17 19:21] VITALS: BP 129/83; PULSE 80
[2019-10-17] MEDS ORDERED: Ketorolac 30 MG/ML SDV IVPUSH ONE (19:22)
[2019-10-17] MEDS ORDERED: Bacitracin Oint 1 GM U/D Packet TOP ONE (19:33)
--- NOTE | 2019-10-19 09:21 | CR ---
Knee 3V Rt CLINICAL HISTORY: Fall FINDINGS: No acute fracture or dislocation is noted. There are no osseous lesions. There is a small spur off the superior patella. Impression: Minimal patellar spurring No fracture or dislocation
--- NOTE | 2019-10-19 09:36 | CR ---
Hand 2V Rt CLINICAL HISTORY: Fall FINDINGS: There is no acute fracture or dislocation of the hand. Impression: Negative
--- NOTE | 2019-10-19 09:37 | CR ---
CHEST: 2 view CLINICAL HISTORY:Fall COMPARISON:2016 FINDINGS: The heart size, pulmonary vascularity and hilar structures are normal. No infiltrate effusion or pneumothorax is seen. IMPRESSION: No acute cardiopulmonary process.
== END 2019-10-17 21:24 | disposition home or self-care (01) ==
LOC: JP.ED 16:50 → EEVIPCON 16:50 → JP.ED 21:24
DX: S09.90XA Unspecified injury of head, initial encounter (principal); S60.511A Abrasion of right hand, initial encounter; S80.211A Abrasion, right knee, initial encounter; S00.81XA Abrasion of other part of head, initial encounter; E78.00 Pure hypercholesterolemia, unspecified; I10 Essential (primary) hypertension; I25.2 Old myocardial infarction; M10.9 Gout, unspecified; J44.9 Chronic obstructive pulmonary disease, unspecified; F41.9 Anxiety disorder, unspecified; E66.9 Obesity, unspecified; Z68.36 Body mass index [BMI] 36.0-36.9, adult; Z86.73 Personal history of transient ischemic attack (TIA), and cerebral infarction without residual deficits; Z79.82 Long term (current) use of aspirin; Z79.899 Other long term (current) drug therapy; Z88.8 Allergy status to other drugs, medicaments and biological substances; Z91.09 Other allergy status, other than to drugs and biological substances; W08.XXXA Fall from other furniture, initial encounter
CPT/HCPCS: 36415; 70450; 70486; 71046; 72125; 73120; 73562; 80053; 80307; 83735; 84484; 85027; 85610; 93005; 96361; 96374; 96375; 99284; J1170; J1885; J2405; J7030; 93010

== ENCOUNTER 2021-01-27 12:57 | Emergency (ER) | payer MEDICAID ==
[2021-01-27 16:01] VITALS: BP 156/100; PULSE 77
[2021-01-27 16:54] LABS: CORONAVIRUS COVID-19 NAA NEGATIVE (NEGATIVE)
[2021-01-27] MEDS ORDERED: Albuterol/Ipratropium 3.0-0.5 MG/3 ML Neb Soln NEB ONE (17:13)
--- NOTE | 2021-01-27 17:15 | EDM.PDOC ---
ED HPI GENERAL MEDICAL PROBLEM - General Chief Complaint: General Stated Complaint: SHAKEY,SHORT OF BREATHE Time Seen by Provider: 01/27/21 17:07 Source of Information: Reports: Patient, RN Notes Reviewed History Limitations: Reports: No Limitations - History of Present Illness INITIAL COMMENTS - FREE TEXT/NARRATIVE: 60-year-old gentleman presents emergency department day complaint of shortness of breath, he states been short of breath for about a day no chest pain no nausea vomiting no diaphoresis he does have a history of COPD I did have some exposures with some people with sinus infection. - Related Data Allergies Allergy/AdvReac Type Severity Reaction Status Date / Time cat dander Allergy Hives Verified 07/05/20 08:24 epinephrine Allergy Cannot Verified 07/05/20 08:24 Remember unknow environmental Allergy Hives Uncoded 07/05/20 08:24 Home Meds: Home Meds Aspirin [Ecotrin EC] 325 mg PO DAILY 01/27/16 [History] atorvaSTATin [Lipitor] 20 mg PO BEDTIME 06/02/16 [History] Albuterol Sulfate [Albuterol Sulfate Hfa] 1 - 2 puff IH ASDIRECTED PRN 02/24/19 [History] Budesonide/Formoterol [Symbicort 80-4.5 MCG] 1 puff INH DAILY 02/24/19 [History] Metoprolol Succinate 50 mg PO DAILY 02/24/19 [History] Sertraline [Zoloft] 100 mg PO DAILY 02/24/19 [History] hydrOXYzine HCL [Atarax] 25 - 50 mg PO TID 02/24/19 [History] diphenhydrAMINE [Benadryl] 25 - 75 mg PO Q4H PRN 07/28/19 [History] Cyclobenzaprine [Flexeril] 10 mg PO TID PRN 07/04/20 [History] Montelukast [Singulair] 10 mg PO DAILY 07/04/20 [History] Omeprazole Magnesium [Prilosec Otc] 20 mg PO DAILY PRN 07/04/20 [History] lisinopriL [Lisinopril] 10 mg PO BEDTIME 07/04/20 [History] Past Medical History HEENT History: Reports: Allergic Rhinitis, Impaired Vision, Other (See Below) Other HEENT History: Seasonal allergies. Cardiovascular History: Reports: CAD, Heart Murmur, High Cholesterol, Hypertension, [place] Other Cardiovascular History: ischemic stroke Respiratory History: Reports: COPD Other Respiratory History: snores- ? sleep apnea Gastrointestinal History: Reports: Colon Polyp, GERD, PUD Genitourinary History: Reports: Other (See Below) Other Genitourinary History: FREQUENT URINATION AT NIGHT Musculoskeletal History: Reports: Arthritis, Gout, Other (See Below) Other Musculoskeletal History: chronic knee pain- difficulty to standing Neurological History: Reports: Concussion, CVA, Headaches, Chronic, Speech Problems Psychiatric History: Reports: Anxiety, Panic Attack Endocrine/Metabolic History: Reports: Obesity/BMI 30+ Hematologic History: Reports: None Immunologic History: Reports: None Oncologic (Cancer) History: Reports: None Dermatologic History: Reports: Urticaria - Infectious Disease History Infectious Disease History: Reports: Chicken Pox - Past Surgical History HEENT Surgical History: Reports: Other (See Below) Other HEENT Surgeries/Procedures: lipoma of cheek Cardiovascular Surgical History: Reports: None Other Cardiovascular Surgeries/Procedures: 5% damage to lower right quadrant on angio but not coronary disease- 10 yrs ago Respiratory Surgical History: Reports: None GI Surgical History: Reports: Colonoscopy Male Surgical History: Reports: Circumcision Endocrine Surgical History: Reports: None Neurological Surgical History: Reports: None Musculoskeletal Surgical History: Reports: None Dermatological Surgical History: Reports: None Social & Family History - Family History Family Medical History: No Pertinent Family History Cardiac: Reports: Blood Clots/VTE/DVT, CAD, Other (See Below) Other Cardiac Family History: carotid blockage Musculoskeletal: Reports: Osteoporosis Endocrine/Metabolic: Reports: Diabetes, type II - Tobacco Use Tobacco Use Status *Q: Current Every Day Tobacco User Years of Tobacco use: 40 Packs/Tins Daily: 1 - Caffeine Use Caffeine Use: Reports: Coffee, Soda, Tea - Recreational Drug Use Recreational Drug Use: No ED ROS GENERAL - Review of Systems Review Of Systems: See Below Constitutional: Denies: Fever, Chills HEENT: Reports: No Symptoms Respiratory: Reports: Shortness of Breath. Denies: Wheezing, Cough, Sputum Cardiovascular: Reports: Dyspnea on Exertion GI/Abdominal: Reports: No Symptoms ED EXAM, GENERAL - Physical Exam Exam: See Below Exam Limited By: No Limitations General Appearance: Alert, WD/WN, No Apparent Distress Respiratory/Chest: No Respiratory Distress, Lungs Clear, Normal Breath Sounds, No Accessory Muscle Use, Chest Non-Tender Cardiovascular: Regular Rate, Rhythm, No Murmur GI/Abdominal: Soft, Non-Tender Course - Vital Signs Last Recorded V/S: Last Vital Signs Temp 97.3 F 01/27/21 16:00 Pulse 77 01/27/21 16:00 Resp 18 01/27/21 16:00 BP 156/100 H 01/27/21 16:00 Pulse Ox 97 01/27/21 16:00 - Orders/Labs/Meds Orders: Active Orders 24 hr Category Date Time Status RT Aerosol Therapy [RC] ASDIRECTED Care 01/27/21 17:13 Active Chest 2V [CR] Urgent Exams 01/27/21 17:12 Taken Isolation [COMM] Stat Oth 01/27/21 13:12 Ordered Labs: Laboratory Tests 01/27/21 01/27/21 01/27/21 Range/Units 16:10 17:22 17:22 WBC 12.7 H (4.5-11.0) K/uL RBC 5.29 (4.30-5.90) M/uL Hgb 16.8 H (12.0-15.0) g/dL Hct 48.9 (40.0-54.0) % MCV 92 (80-98) fL MCH 32 H (27-31) pg MCHC 34 (32-36) % Plt Count 267 (150-400) K/uL Neut % (Auto) 60.6 (36-66) % Lymph % (Auto) 31.7 (24-44) % Coffee % (Auto) 6.8 H (2-6) % Eos % (Auto) 0.6 L (2-4) % Baso % (Auto) 0.3 (0-1) % Sodium 143 (140-148) mmol/L Potassium 4.3 (3.6-5.2) mmol/L Chloride 106 (100-108) mmol/L Carbon Dioxide 26 (21-32) mmol/L Anion Gap 10.6 (5.0-14.0) mmol/L BUN 12 (7-18) mg/dL Creatinine 1.0 (0.8-1.3) mg/dL Est Cr Clr Drug Dosing 77.90 mL/min Estimated GFR (MDRD) > 60 (>60) Glucose 100 (74-106) mg/dL Lactic Acid (0.4-2.0) mmol/L Calcium 8.8 (8.5-10.1) mg/dL Total Bilirubin 0.4 (0.2-1.0) mg/dL AST 37 (15-37) U/L ALT 87 H (12-78) U/L Alkaline Phosphatase 71 (46-116) U/L Troponin I < 0.017 (0.000-0.056) ng/mL NT-Pro-B Natriuret Pep (5-125) pg/mL Total Protein 7.3 (6.4-8.2) g/dL Albumin 3.9 (3.4-5.0) g/dL Globulin 3.4 (2.3-3.5) g/dL Albumin/Globulin Ratio 1.1 L (1.2-2.2) Influenza Type A RNA Negative (NEGATIVE) RSV RNA (INAAT) Negative (NEGATIVE) Influenza Type B RNA Negative (NEGATIVE) SARS-CoV-2 RNA (REYNA) Negative (NEGATIVE) 01/27/21 01/27/21 Range/Units 17:22 17:22 WBC (4.5-11.0) K/uL RBC (4.30-5.90) M/uL Hgb (12.0-15.0) g/dL Hct (40.0-54.0) % MCV (80-98) fL MCH (27-31) pg MCHC (32-36) % Plt Count (150-400) K/uL Neut % (Auto) (36-66) % Lymph % (Auto) (24-44) % Coffee % (Auto) (2-6) % Eos % (Auto) (2-4) % Baso % (Auto) (0-1) % Sodium (140-148) mmol/L Potassium (3.6-5.2) mmol/L Chloride (100-108) mmol/L Carbon Dioxide (21-32) mmol/L Anion Gap (5.0-14.0) mmol/L BUN (7-18) mg/dL Creatinine (0.8-1.3) mg/dL Est Cr Clr Drug Dosing mL/min Estimated GFR (MDRD) (>60) Glucose (74-106) mg/dL Lactic Acid 1.3 (0.4-2.0) mmol/L Calcium (8.5-10.1) mg/dL Total Bilirubin (0.2-1.0) mg/dL AST (15-37) U/L ALT (12-78) U/L Alkaline Phosphatase (46-116) U/L Troponin I (0.000-0.056) ng/mL NT-Pro-B Natriuret Pep 159 H (5-125) pg/mL Total Protein (6.4-8.2) g/dL Albumin (3.4-5.0) g/dL Globulin (2.3-3.5) g/dL Albumin/Globulin Ratio (1.2-2.2) Influenza Type A RNA (NEGATIVE) RSV RNA (INAAT) (NEGATIVE) Influenza Type B RNA (NEGATIVE) SARS-CoV-2 RNA (REYNA) (NEGATIVE) Meds: Medications Discontinued Medications Generic Name Dose Route Start Last Admin Trade Name Freq PRN Reason Stop Dose Admin Albuterol/Ipratropium 3 ml 01/27/21 17:13 01/27/21 17:34 Albuterol/Ipratropium 3.0-0.5 Mg/3 Ml Neb Soln NEB 01/27/21 17:14 3 ml ONETIME ONE Administration Departure - Departure Time of Disposition: 18:10 Disposition: Home, Self-Care 01 Condition: Fair Clinical Impression: Bronchitis - Discharge Information Instructions: Acute Bronchitis, Adult, [id number] Referrals: Francisco Gill [employer] CONSULTANT [Primary Care Provider] - Forms: ED Department Discharge Additional Instructions: Take full course of antibiotics, please followup with your primary care provider in 5-7 days if not better, please call return to the emergency department with worsening of symptoms. Sepsis Event Note (ED) - Evaluation Sepsis Screening Result: No Definite Risk - Focused Exam Vital Signs: Vital Signs Temp Pulse Resp BP Pulse Ox 01/27/21 16:00 97.3 F 77 18 156/100 H 97 - My Orders Last 24 Hours: My Active Orders 01/27/21 13:12 Isolation [COMM] Stat 01/27/21 17:12 Chest 2V [CR] Urgent 01/27/21 17:13 RT Aerosol Therapy [RC] ASDIRECTED - Assessment/Plan Last 24 Hours: My Active Orders 01/27/21 13:12 Isolation [COMM] Stat 01/27/21 17:12 Chest 2V [CR] Urgent 01/27/21 17:13 RT Aerosol Therapy [RC] ASDIRECTED Plan: Assessment Acuity = acute Site and laterality = bronchitis Etiology = suspicious for underlying bacterial cause Manifestations = dyspnea Location of injury = Home Lab values = CBC reveals a white count elevated 12.6 consistent leukocytosis, CMP unremarkable troponin was negative BNP negative chest x-ray I did review films myself I cannot appreciate any acute process, the official read from radiology is pending Plan Given his history of COPD elected to treat empirically with azithromycin 5-day course follow-up with primary care in 5 to 7 days if not better This note was dictated using [employer] voice recognition software please call with any questions on syntax or grammar.
--- NOTE | 2021-01-28 09:02 | CR ---
CHEST: 2 view CLINICAL HISTORY:SOB COMPARISON:October 2019 FINDINGS: Heart size and pulmonary vascularity are normal. There is mild generalized increase in lung markings bilaterally. This was also present on the prior study. Lower lobe lung markings minimal increased slightly. Some of this may be technical. Impression: Mild prominence of the interstitial lung markings. Some of this is chronic. Superimposed pneumonitis is felt less likely but not absolutely excluded If clinical symptomatology persists or worsens a repeat exam is recommended. .
== END 2021-01-27 18:18 | disposition home or self-care (01) ==
LOC: JP.ED 12:57
DX: J40 Bronchitis, not specified as acute or chronic (principal); I25.10 Atherosclerotic heart disease of native coronary artery without angina pectoris; E78.00 Pure hypercholesterolemia, unspecified; I10 Essential (primary) hypertension; I25.2 Old myocardial infarction; E66.9 Obesity, unspecified; Z68.45 Body mass index [BMI] 70 or greater, adult; Z86.73 Personal history of transient ischemic attack (TIA), and cerebral infarction without residual deficits; Z88.4 Allergy status to anesthetic agent; Z91.09 Other allergy status, other than to drugs and biological substances; Z79.82 Long term (current) use of aspirin; Z79.899 Other long term (current) drug therapy; Z72.0 Tobacco use; Z20.822 Contact with and (suspected) exposure to COVID-19
CPT/HCPCS: 0241U; 36415; 71046; 80053; 83605; 83880; 84484; 85025; 94640; 99285; J7620-GY

== ENCOUNTER 2021-01-30 12:46 | Emergency (ER) | payer MEDICAID ==
[2021-01-30] MEDS ORDERED: LORazepam 1 MG Tab PO ONE (13:21)
--- NOTE | 2021-01-30 13:23 | EDM.PDOC ---
ED HPI GENERAL MEDICAL PROBLEM - General Chief Complaint: General Stated Complaint: FEELS LIKE IS GOING TO COLLAPSE Time Seen by Provider: 01/30/21 13:16 Source of Information: Reports: Patient, Old Records, RN Notes Reviewed History Limitations: Reports: No Limitations - History of Present Illness INITIAL COMMENTS - FREE TEXT/NARRATIVE: 60-year-old gentleman presents emergency department day complaint of shortness of breath, he states he feels lightheaded numbness and tingling in his fingertips dry mouth feels like he is going to . I did have the opportunity to evaluate him 3 days prior same complaint work-up at that time was unrevealing negative chest x-ray negative troponin, did try it trial course of azithromycin he states it did not help. - Related Data Allergies Allergy/AdvReac Type Severity Reaction Status Date / Time cat dander Allergy Hives Verified 07/05/20 08:24 epinephrine Allergy Cannot Verified 07/05/20 08:24 Remember unknow environmental Allergy Hives Uncoded 07/05/20 08:24 Home Meds: Home Meds Aspirin [Ecotrin EC] 325 mg PO DAILY 01/27/16 [History] atorvaSTATin [Lipitor] 20 mg PO BEDTIME 06/02/16 [History] Albuterol Sulfate [Albuterol Sulfate Hfa] 1 - 2 puff IH ASDIRECTED PRN 02/24/19 [History] Budesonide/Formoterol [Symbicort 80-4.5 MCG] 1 puff INH DAILY 02/24/19 [History] Metoprolol Succinate 50 mg PO DAILY 02/24/19 [History] Sertraline [Zoloft] 100 mg PO DAILY 02/24/19 [History] hydrOXYzine HCL [Atarax] 25 - 50 mg PO TID 02/24/19 [History] diphenhydrAMINE [Benadryl] 25 - 75 mg PO Q4H PRN 07/28/19 [History] Cyclobenzaprine [Flexeril] 10 mg PO TID PRN 07/04/20 [History] Montelukast [Singulair] 10 mg PO DAILY 07/04/20 [History] Omeprazole Magnesium [Prilosec Otc] 20 mg PO DAILY PRN 07/04/20 [History] lisinopriL [Lisinopril] 10 mg PO BEDTIME 07/04/20 [History] Past Medical History HEENT History: Reports: Allergic Rhinitis, Impaired Vision, Other (See Below) Other HEENT History: Seasonal allergies. Cardiovascular History: Reports: CAD, Heart Murmur, High Cholesterol, Hypertension, MA Other Cardiovascular History: ischemic stroke Respiratory History: Reports: COPD Other Respiratory History: snores- ? sleep apnea Gastrointestinal History: Reports: Colon Polyp, GERD, PUD Genitourinary History: Reports: Other (See Below) Other Genitourinary History: FREQUENT URINATION AT NIGHT Musculoskeletal History: Reports: Arthritis, Gout, Other (See Below) Other Musculoskeletal History: chronic knee pain- difficulty to standing Neurological History: Reports: Concussion, CVA, Headaches, Chronic, Speech Problems Psychiatric History: Reports: Anxiety, Panic Attack Endocrine/Metabolic History: Reports: Obesity/BMI 30+ Hematologic History: Reports: None Immunologic History: Reports: None Oncologic (Cancer) History: Reports: None Dermatologic History: Reports: Urticaria - Infectious Disease History Infectious Disease History: Reports: Chicken Pox - Past Surgical History HEENT Surgical History: Reports: Other (See Below) Other HEENT Surgeries/Procedures: lipoma of cheek Cardiovascular Surgical History: Reports: None Other Cardiovascular Surgeries/Procedures: 5% damage to lower right quadrant on angio but not coronary disease- 10 yrs ago Respiratory Surgical History: Reports: None GI Surgical History: Reports: Colonoscopy Male Surgical History: Reports: Circumcision Endocrine Surgical History: Reports: None Neurological Surgical History: Reports: None Musculoskeletal Surgical History: Reports: None Dermatological Surgical History: Reports: None Social & Family History - Family History Family Medical History: No Pertinent Family History Cardiac: Reports: Blood Clots/VTE/DVT, CAD, Other (See Below) Other Cardiac Family History: carotid blockage Musculoskeletal: Reports: Osteoporosis Endocrine/Metabolic: Reports: Diabetes, type II - Tobacco Use Tobacco Use Status *Q: Current Every Day Tobacco User Years of Tobacco use: 40 Packs/Tins Daily: 1 - Caffeine Use Caffeine Use: Reports: Coffee ED ROS GENERAL - Review of Systems Review Of Systems: See Below Constitutional: Reports: No Symptoms HEENT: Reports: Other (Dry mouth) Respiratory: Reports: Shortness of Breath. Denies: Wheezing, Cough, Sputum Cardiovascular: Reports: No Symptoms GI/Abdominal: Reports: No Symptoms Neurological: Reports: Numbness, Tingling ED EXAM, GENERAL - Physical Exam Exam: See Below Exam Limited By: No Limitations General Appearance: Alert, WD/WN, No Apparent Distress Respiratory/Chest: No Respiratory Distress, Lungs Clear, Normal Breath Sounds, No Accessory Muscle Use, Chest Non-Tender Cardiovascular: Regular Rate, Rhythm, No Murmur GI/Abdominal: Soft, Non-Tender Course - Vital Signs Last Recorded V/S: Last Vital Signs Temp 98.0 F 01/30/21 12:56 Pulse 62 01/30/21 14:16 Resp 21 H 01/30/21 14:16 BP 148/90 H 01/30/21 14:16 Pulse Ox 92 L 01/30/21 14:16 - Orders/Labs/Meds Meds: Medications Discontinued Medications Generic Name Dose Route Start Last Admin Trade Name Hunter PRN Reason Stop Dose Admin Lorazepam 1 mg 01/30/21 13:21 01/30/21 13:30 Lorazepam 1 Mg Tab PO 01/30/21 13:22 1 mg ONETIME ONE Administration Departure - Departure Time of Disposition: 14:38 Disposition: Home, Self-Care 01 Condition: Fair Clinical Impression: Anxiety - Discharge Information Instructions: Managing Anxiety, Adult Referrals: Francisco Gill NP [Primary Care Provider] - Forms: ED Department Discharge Additional Instructions: Try the Ativan at home use a half a tablet as needed up to 3 times a day, hold your hydroxyzine until reevaluated by your primary care within the next week call return to the emergency department worsening of symptoms Sepsis Event Note (ED) - Focused Exam Vital Signs: Vital Signs Temp Pulse Resp BP Pulse Ox 01/30/21 14:16 62 21 H 148/90 H 92 L 01/30/21 13:38 73 12 156/88 H 96 01/30/21 12:56 98.0 F 77 18 165/90 H 98 - Assessment/Plan Plan: Assessment Acuity = acute Site and laterality = anxiety Etiology = unknown Manifestations = none Location of injury = Home Lab values = none Plan I did talk to him about further evaluation and work-up he declined at this time is considered see his primary care. I did treat him 1 mg Ativan he felt the shortness of breath improved significantly. Working to try that medication he is going to take a half a tablets as needed hold his hydroxyzine until reevaluated by his primary care prescription written for 1 mg Ativan p.o. 3 times daily as needed total #10 This note was dictated using [employer] voice recognition software please call with any questions on syntax or grammar.
[2021-01-30 14:17] VITALS: BP 148/90; PULSE 62
== END 2021-01-30 14:45 | disposition home or self-care (01) ==
LOC: JP.ED 12:46
DX: F41.9 Anxiety disorder, unspecified (principal); I25.10 Atherosclerotic heart disease of native coronary artery without angina pectoris; E78.00 Pure hypercholesterolemia, unspecified; I10 Essential (primary) hypertension; I25.2 Old myocardial infarction; J44.9 Chronic obstructive pulmonary disease, unspecified; M10.9 Gout, unspecified; E66.9 Obesity, unspecified; Z68.37 Body mass index [BMI] 37.0-37.9, adult; Z86.73 Personal history of transient ischemic attack (TIA), and cerebral infarction without residual deficits; Z88.4 Allergy status to anesthetic agent; Z91.09 Other allergy status, other than to drugs and biological substances; Z79.82 Long term (current) use of aspirin; Z79.899 Other long term (current) drug therapy; Z72.0 Tobacco use
CPT/HCPCS: 99283; A9270

== ENCOUNTER 2021-06-27 15:14 | Emergency (ER) | payer MEDICAID ==
[2021-06-27 15:30] VITALS: BP 181/102; PULSE 88
[2021-06-27 15:49] LABS: TROPONIN I HIGH SENSITIVITY 32.9 pg/mL (<=60.3)
[2021-06-27 16:42] LABS: CORONAVIRUS COVID-19 NAA NEGATIVE (NEGATIVE)
== END 2021-06-27 17:01 | disposition home or self-care (01) ==
LOC: JP.ED 15:14
DX: R07.89 Other chest pain (principal); F41.9 Anxiety disorder, unspecified; I25.10 Atherosclerotic heart disease of native coronary artery without angina pectoris; E78.00 Pure hypercholesterolemia, unspecified; I10 Essential (primary) hypertension; I25.2 Old myocardial infarction; J44.9 Chronic obstructive pulmonary disease, unspecified; M10.9 Gout, unspecified; E66.9 Obesity, unspecified; Z68.37 Body mass index [BMI] 37.0-37.9, adult; Z91.09 Other allergy status, other than to drugs and biological substances; Z88.4 Allergy status to anesthetic agent; Z79.82 Long term (current) use of aspirin; Z79.899 Other long term (current) drug therapy; Z20.822 Contact with and (suspected) exposure to COVID-19
CPT/HCPCS: 0241U; 36415; 80048; 84484; 85025; 93005; 93010; 99283; 99285-25

== ENCOUNTER 2021-06-29 06:45 | Emergency (ER) | payer OTHER, MEDICAID ==
[2021-06-29 07:17] LABS: TROPONIN I HIGH SENSITIVITY 30.8 pg/mL (<=60.3)
[2021-06-29] MEDS ORDERED: LORazepam 1 MG Tab PO ONE (07:27)
[2021-06-29] MEDS ORDERED: Metoprolol Succinate 50 MG Tab.ER PO ONE (08:02)
[2021-06-29 08:18] VITALS: BP 146/82; PULSE 93
== END 2021-06-29 08:29 | disposition home or self-care (01) ==
LOC: JP.ED 06:45
DX: R07.89 Other chest pain (principal); F41.9 Anxiety disorder, unspecified; J44.9 Chronic obstructive pulmonary disease, unspecified; I25.10 Atherosclerotic heart disease of native coronary artery without angina pectoris; E78.5 Hyperlipidemia, unspecified; F17.200 Nicotine dependence, unspecified, uncomplicated; E78.00 Pure hypercholesterolemia, unspecified; R73.03 Prediabetes; I10 Essential (primary) hypertension; I25.2 Old myocardial infarction; E66.9 Obesity, unspecified; Z86.73 Personal history of transient ischemic attack (TIA), and cerebral infarction without residual deficits; Z88.4 Allergy status to anesthetic agent; Z91.09 Other allergy status, other than to drugs and biological substances; Z79.82 Long term (current) use of aspirin; Z79.899 Other long term (current) drug therapy; Z68.36 Body mass index [BMI] 36.0-36.9, adult
CPT/HCPCS: 36415; 80053; 84443; 84484; 85025; 85379; 86140; 93005; 93010; 99283; 99285-25; A9270-GY

== ENCOUNTER 2021-12-07 14:18 | Emergency (ER) | payer MEDICAID, OTHER ==
[2021-12-07] MEDS ORDERED: Metoprolol Succinate 50 MG Tab.ER PO ONE (14:49)
[2021-12-07 15:04] VITALS: PULSE 94
[2021-12-07] MEDS ORDERED: Lisinopril 10 MG Tab PO ONE (15:38)
[2021-12-07] MEDS ORDERED: LORazepam 0.5 MG Tab PO ONE (16:09)
[2021-12-07 16:22] VITALS: BP 166/103
== END 2021-12-07 16:24 | disposition home or self-care (01) ==
LOC: JP.ED 14:18
DX: R07.89 Other chest pain (principal); I25.10 Atherosclerotic heart disease of native coronary artery without angina pectoris; J44.9 Chronic obstructive pulmonary disease, unspecified; F41.9 Anxiety disorder, unspecified; I10 Essential (primary) hypertension; R73.03 Prediabetes; E78.00 Pure hypercholesterolemia, unspecified; F17.210 Nicotine dependence, cigarettes, uncomplicated; E66.9 Obesity, unspecified; Z68.34 Body mass index [BMI] 34.0-34.9, adult; Z91.048 Other nonmedicinal substance allergy status; Z88.8 Allergy status to other drugs, medicaments and biological substances; Z79.82 Long term (current) use of aspirin; Z79.899 Other long term (current) drug therapy; Z20.822 Contact with and (suspected) exposure to COVID-19
CPT/HCPCS: 36415; 71045; 80048; 83880; 84484; 85025; 87635; 93005; 99285; A9270; 93010; 99284; U0002

== ENCOUNTER 2021-12-10 18:38 | Emergency (ER) | payer MEDICAID ==
[2021-12-10] MEDS ORDERED: Azithromycin 250 MG Tab PO ONE (22:00)
[2021-12-10] MEDS ORDERED: Amoxicillin/Clavulanate K 875-125 MG Tab PO ONE (22:00)
[2022-01-05 17:38] LABS: ESTIMATED GFR 98 mL/min (>60)
[2022-01-05 17:39] LABS: TROPONIN I HIGH SENSITIVITY 35.8 pg/mL (<=60.3)
== END 2021-12-10 20:57 | disposition home or self-care (01) ==
LOC: JP.ED 18:38
DX: J18.9 Pneumonia, unspecified organism (principal); I25.2 Old myocardial infarction; Z86.73 Personal history of transient ischemic attack (TIA), and cerebral infarction without residual deficits; Z88.4 Allergy status to anesthetic agent; Z20.822 Contact with and (suspected) exposure to COVID-19
CPT/HCPCS: 36415; 71046; 80048; 84484; 85025; 87635; 99285; A9270; U0002